=== PATIENT | male | born 1960 | race Caucasian/White ===

== ENCOUNTER 2017-12-18 09:36 | Emergency (ER) | payer BC, OTHER ==
[2017-12-18] MEDS ORDERED: Sodium Chloride 0.9% 10 ML Syringe FLUSH PRN (09:42)
--- NOTE | 2017-12-18 09:44 | EDM.PDOC ---
ED HPI GENERAL MEDICAL PROBLEM - General Chief Complaint: Chest Pain Stated Complaint: CHEST PAIN Time Seen by Provider: 12/18/17 09:37 Source of Information: Reports: Patient History Limitations: Reports: No Limitations - History of Present Illness INITIAL COMMENTS - FREE TEXT/NARRATIVE: The patient presents with left to mid chest pain. This started this morning when he was taking off some rotor off of a vehicle. He was pulling hard and using a cheater bar. He had 6 episodes of sharp chest pain and he got lightheaded with it. He has no pain now. He did not get short of breath with it. He had some nausea but no vomiting. He has no fever, chills, cough, abdominal pain or vomiting. He has no heart disease. About 11 years ago he had some trouble with chest pain. He ended up having an angiogram that was normal. He has no history of hypertension, diabetes or hypercholesterolemia. He did take 2 full aspirin before arrival. He initially called for EMS but the pain got better so he came by private vehicle. Onset: Sudden Duration: Minutes: Location: Reports: Chest Quality: Reports: Sharp Severity: Moderate Improves with: Reports: None Worsens with: Reports: None Associated Symptoms: Reports: Chest Pain, Nausea/Vomiting. Denies: Confusion, Cough, Diaphoresis, Fever/Chills, Headaches, Shortness of Breath - Related Data Allergies Allergy/AdvReac Type Severity Reaction Status Date / Time No Known Allergies Allergy Verified 12/18/17 09:48 Home Meds: Home Meds . [No Known Home Meds] 12/18/17 [History] ED ROS GENERAL - Review of Systems Review Of Systems: See Below Constitutional: Reports: No Symptoms HEENT: Reports: No Symptoms Respiratory: Reports: No Symptoms Cardiovascular: Reports: Chest Pain Endocrine: Reports: No Symptoms GI/Abdominal: Reports: Nausea. Denies: Abdominal Pain, Vomiting : Reports: No Symptoms Musculoskeletal: Reports: No Symptoms ED EXAM, GENERAL - Physical Exam Exam: See Below Exam Limited By: No Limitations General Appearance: Alert, No Apparent Distress Ears: Normal External Exam Nose: Normal Inspection Head: Atraumatic, Normocephalic Neck: Normal Inspection Respiratory/Chest: No Respiratory Distress, Lungs Clear, Normal Breath Sounds Cardiovascular: Regular Rate, Rhythm, No Edema, No Murmur GI/Abdominal: Soft, Non-Tender, No Organomegaly, No Mass Back Exam: Normal Inspection Extremities: Normal Inspection EKG INTERPRETATION EKG Date: 12/18/17 Time: 09:38 Rhythm: Other (sinus tachycardia) Rate (Beats/Min): 119 [place]: Normal P-Wave: Present QRS: Normal ST-T: Normal QT: Normal Course - Vital Signs Last Recorded V/S: Last Vital Signs Temp 97.6 F 12/18/17 09:36 Pulse 124 H 12/18/17 09:36 Resp 18 12/18/17 09:36 BP 176/88 H 12/18/17 09:36 Pulse Ox 98 12/18/17 09:36 - Orders/Labs/Meds Orders: Active Orders 24 hr Category Date Time Status Cardiac Monitoring [RC] . DIRECTED Care 12/18/17 09:42 Active EKG Documentation Completion [RC] ASDIRECTED Care 12/18/17 12:17 Active EKG Documentation Completion [RC] STAT Care 12/18/17 09:42 Active Peripheral IV Care [RC] . DIRECTED Care 12/18/17 09:42 Active TROPONIN I [CHEM] Stat Lab 12/18/17 12:18 Ordered Sodium Chloride 0.9% [Saline Flush] Med 12/18/17 09:42 Active 10 ml FLUSH ASDIRECTED PRN Peripheral IV Insertion Adult [OM.PC] Stat Oth 12/18/17 09:42 Ordered EKG 12 Lead [EK] Stat Ther 12/18/17 12:17 Ordered Medication Orders Sodium Chloride (Saline Flush) 10 ml FLUSH ASDIRECTED PRN PRN Reason: Keep Vein Open Labs: Laboratory Tests 12/18/17 12/18/17 12/18/17 Range/Units 09:40 09:40 09:40 WBC 4.47 (4.23-9.07) K/mm3 RBC 5.13 (4.63-6.08) M/mm3 Hgb 16.2 (13.7-17.5) gm/L Hct 47.7 (40.1-51.0) % MCV 93.0 H (79.0-92.2) fl MCH 31.6 (25.7-32.2) pg MCHC 34.0 (32.2-35.5) g/dl RDW Std Deviation 41.9 (35.1-43.9) fL Plt Count 226 (163-337) K/mm3 MPV 10.1 (9.4-12.3) fl Neut % (Auto) 50.0 (34.0-67.9) % Lymph % (Auto) 34.2 (21.8-53.1) % [place] % (Auto) 14.1 H (5.3-12.2) % Eos % (Auto) 1.1 (0.8-7.0) Baso % (Auto) 0.4 (0.1-1.2) % Neut # (Auto) 2.23 (1.78-5.38) K/mm3 Lymph # (Auto) 1.53 (1.32-3.57) K/mm3 [place] # (Auto) 0.63 (0.30-0.82) K/mm3 Eos # (Auto) 0.05 (0.04-0.54) K/mm3 Baso # (Auto) 0.02 (0.01-0.08) K/mm3 D-Dimer, Quantitative 0.26 (0.19-0.50) mg/L Sodium 138 (136-145) mEq/L Potassium 3.4 L (3.5-5.1) mEq/L Chloride 102 (98-107) mEq/L Carbon Dioxide 25 (21-32) mEq/L Anion Gap 14.4 (5-15) BUN 17 (7-18) mg/dL Creatinine 1.1 (0.7-1.3) mg/dL Est Cr Clr Drug Dosing 78.91 mL/min Estimated GFR (MDRD) > 60 (>60) mL/min BUN/Creatinine Ratio 15.5 (14-18) Glucose 112 H (74-106) mg/dL Calcium 9.3 (8.5-10.1) mg/dL Total Bilirubin 0.9 (0.2-1.0) mg/dL AST 25 (15-37) U/L ALT 32 (16-63) U/L Alkaline Phosphatase 70 (46-116) U/L Troponin I < 0.017 (0.00-0.056) ng/mL Total Protein 7.5 (6.4-8.2) g/dl Albumin 4.2 (3.4-5.0) g/dl Globulin 3.3 gm/dL Albumin/Globulin Ratio 1.3 (1-2) Meds: Medications Generic Name Dose Route Start Last Admin Trade Name Kate PRN Reason Stop Dose Admin Sodium Chloride 10 ml 12/18/17 09:42 Saline Flush FLUSH ASDIRECTED PRN Keep Vein Open - Re-Assessments/Exams Free Text/Narrative Re-Assessment/Exam: 12/18/17 12:11 I ordered an IV saline lock, labs, EKG and CXR. His EKG shows a sinus tachycardia with no acute changes. His CXR looks good. His CBC and CMP look good. His troponin was negative. His D-dimer was negative. He has no chest pain. I will repeat a troponin and EKG soon. Departure - Departure Time of Disposition: 12:30 Disposition: Home, Self-Care 01 Condition: Good Clinical Impression: Atypical chest pain Referrals: Jered Newell MD [Primary Care Provider] - Forms: ED Department Discharge Additional Instructions: Please return if you have any more problems. Follow up with your doctor in a week. I will call you with the results of the labs. - My Orders Last 24 Hours: My Active Orders 12/18/17 09:42 Cardiac Monitoring [RC] . DIRECTED EKG Documentation Completion [RC] STAT Peripheral IV Care [RC] . DIRECTED Sodium Chloride 0.9% [Saline Flush] 10 ml FLUSH ASDIRECTED PRN Peripheral IV Insertion Adult [OM.PC] Stat 12/18/17 12:17 EKG Documentation Completion [RC] ASDIRECTED EKG 12 Lead [EK] Stat 12/18/17 12:18 TROPONIN I [CHEM] Stat - Assessment/Plan Last 24 Hours: My Active Orders 12/18/17 09:42 Cardiac Monitoring [RC] . DIRECTED EKG Documentation Completion [RC] STAT Peripheral IV Care [RC] . DIRECTED Sodium Chloride 0.9% [Saline Flush] 10 ml FLUSH ASDIRECTED PRN Peripheral IV Insertion Adult [OM.PC] Stat 12/18/17 12:17 EKG Documentation Completion [RC] ASDIRECTED EKG 12 Lead [EK] Stat 12/18/17 12:18 TROPONIN I [CHEM] Stat
--- NOTE | 2017-12-18 10:35 | CR ---
Chest: Portable view of the chest was obtained. Comparison: No prior chest x-ray. Heart size is within normal limits for portable technique. Mild tortuosity of the thoracic aorta is seen. Lungs are clear with no acute parenchymal change. Bony structures are grossly intact. Impression: 1. Nothing acute is identified on portable chest x-ray. Diagnostic code #1
== END 2017-12-18 12:50 | disposition home or self-care (01) ==
LOC: SUPCPDRO 09:36 → JD.ED 09:36
DX: R07.89 Other chest pain (principal)
CPT/HCPCS: 36415; 71045; 80053; 84484; 85025; 85379; 93005; 99285; J7050; 93010; 99284-25